=== PATIENT | male | born 1955 | race Caucasian/White ===

== ENCOUNTER 2021-10-08 08:32 | Emergency (ER) | payer SELFPAY ==
[~2021-10-08] VITALS: Ht 172.7 cm; Wt 72.6 kg
[2021-10-08 08:50] VITALS: BP 175/80
[2021-10-08] MEDS ORDERED: ACETAMINOPHEN ES 500 MG TABLET ONE (09:26)
[2021-10-08] MEDS ORDERED: TDAP [DIPH/PERTUSSIS/TET] 0.5 ML VIAL IM ONE (09:27)
[2021-10-08] MEDS: BACI/NEOM/POLY B OINT PKT 1 UDPKT PACKET TP ONE (09:30)
[2021-10-08] MEDS: ACETAMINOPHEN ES 500 MG TABLET PO ONE (09:30)
[2021-10-08] MEDS: TDAP [DIPH/PERTUSSIS/TET] 0.5 ML VIAL IM ONE (09:34)
--- NOTE | 2021-10-08 09:35 | NUR ---
Patient discharged to home in stable condition. Written and verbal after care instructions given. Patient verbalizes understanding of instruction.
== END 2021-10-08 09:36 | disposition home or self-care (01) ==
LOC: ER 08:40
DX: S61.102A Unspecified open wound of left thumb with damage to nail, initial encounter (principal); W22.8XXA Striking against or struck by other objects, initial encounter; Y93.89 Activity, other specified; Y92.89 Other specified places as the place of occurrence of the external cause; Y99.8 Other external cause status
CPT/HCPCS: 90715